=== PATIENT | female | born 1980 | race Two or more races ===

== ENCOUNTER 2025-02-15 07:11 | Emergency (ER) | payer MEDICARE, BC ==
[~2025-02-15] VITALS: Ht 160 cm; Wt 70.0 kg
[2025-02-15 07:35] VITALS: O2SAT 99
[2025-02-15 08:24] LABS: BASOPHILS % 0.6 % (0.0-2.0); EOSINOPHILS % 5.3 % (0.0-5.0); HEMATOCRIT. 36.5 % (36.0-48.0); HEMOGLOBIN. 11.8 g/dL (12.0-16.0); LYMPHOCYTES % 19.6 % (20.0-50.0); MEAN PLATELET VOLUME 7.6 fl (7.4-10.4); MONOCYTES % 7.7 % (2.0-8.0); NEUTROPHILS % 66.8 % (40.0-76.0); PLATELET 313 x1000/uL (130-400); RED BLOOD CELL COUNT 4.44 mill/uL (4.2-5.4); RED CELL DISTRIBUTION WIDTH 16.3 % (11.6-14.6)
[2025-02-15 08:40] LABS: CREATININE 0.7 mg/dL (0.6-1.0); UREA NITROGEN BLOOD 8 mg/dL (9-23)
[2025-02-15] MEDS: KETOROLAC 30MG/ML VIAL IM ONE (08:51)
[2025-02-15 09:59] LABS: HCG SCREEN NEGATIVE
[2025-02-15 10:02] LABS: ASPARTATE AMINOTRANSFERASE 102 IU/L (<34); BILIRUBIN DIRECT 0.1 mg/dL (<=3.0); BILIRUBIN TOTAL 0.4 mg/dL (0.1-1.0); PROTEIN TOTAL 6.6 g/dL (6.0-8.3)
[2025-02-15 10:36] LABS: CLARITY URINE CLOUDY (CLEAR); COLOR URINE YELLOW (YELLOW); GLUCOSE URINE NEGATIVE (NEGATIVE); KETONES URINE NEGATIVE (NEGATIVE); LEUKOCYTE ESTERASE URINE NEGATIVE (NEGATIVE); NITRITE URINE NEGATIVE (NEGATIVE); OCCULT BLOOD URINE 2+ (NEGATIVE); PH URINE 5.5 (4.5-8.0); PROTEIN URINE NEGATIVE (NEGATIVE); SPECIFIC GRAVITY URINE 1.016 (1.005-1.030); UROBILINOGEN URINE 0.2 E.U./dL (0.2-1.0)
[2025-02-15 10:57] LABS: SQUAMOUS EPITHELIAL CELL URINE 2+ /lpf (RARE/1+)
[2025-02-15 10:58] LABS: CALCIUM OXALATE CRYSTALS URINE 1+ /lpf; WBC URINE 0-2 /hpf (0-2)
[2025-02-15 10:59] LABS: BACTERIA URINE 3+; MUCUS URINE 1+ /lpf (< = 2+)
[2025-02-15] MEDS ORDERED: IBUP-1455 MT (11:13)
[2025-02-15 12:04] VITALS: BP 116/67; PULSE 68; RESP 16; TEMP 36.9; O2SAT 99
== END 2025-02-15 12:05 | disposition home or self-care (01) ==
LOC: ER 07:11
DX: R10.A1 Flank pain, right side (principal); R11.0 Nausea
CPT/HCPCS: 80076; 80048; 81003; 81025; 84703; 83690; 85025; 36415; 74176; 96372; 99285; J1885; Z7610